=== PATIENT | female | born 1940 | race Caucasian/White ===

== ENCOUNTER 2024-08-05 07:57 | Outpatient (CLI) | payer OTHER, BC | END 2024-08-05 18:17 | disposition home or self-care (01) | LOC: SUS 07:57 | PROVIDERS: ATTEND Physician Assistant | DX: I82.409 Acute embolism and thrombosis of unspecified deep veins of unspecified lower extremity (principal); M79.89 Other specified soft tissue disorders | CPT/HCPCS: 93970 ==